=== PATIENT | male | born 1975 | race Caucasian/White ===

== ENCOUNTER 2020-09-03 15:44 | Emergency (ER) | payer OTHER, SELFPAY ==
--- NOTE | ~2020-09-03 | XR_ITS ---
XR foot LT min 3V 09/03/2020 16:05 INDICATION: Left foot pain PROCEDURE: 4 Views left foot COMPARISON: No prior studies FINDINGS: Fracture, dislocation or subluxation is not identified. Lisfranc joint intact. The soft tis sues appear within normal limits. No foreign bodies are identified. IMPRESSION: 1: NO ACUTE BONE OR JOINT ABNORMALITY IDENTIFIED. Reviewed, dictated and finalized at location A.
--- NOTE | 2020-09-03 15:52 | ED.LOWEXIN ---
HPI - Extremity Injury (Lower) General Chief Complaint: Extremity Injury, Lower Stated Complaint: Possible broken right Foot Time Seen by Provider: 09/03/20 15:52 Source: patient and RN notes reviewed History of Present Illness HPI Narrative: Patient is a 45-year-old male who presents the urgent care with complaints of left foot injury. Patient states that on Tuesday he was walking up his driveway and rolled the right foot. Patient states that he is iced the foot, elevated it and taken ibuprofen and Mcgrath for the pain. Patient states that he heard a pop and knows it has fractured . Patient also reports of some mild swelling to the outside of the left foot. No other acute complaints. No acute distress noted. Patient aware of the plan of care. Some parts of this dictation were generated by voice recognition software and may contain typographical and/or grammatical inaccuracies. Related Data Home Medications Medication Instructions Recorded Confirmed ivermectin [Soolantra] applic TOPICAL 09/03/20 ketoconazole TOPICAL 09/03/20 Allergies Allergy/AdvReac Type Severity Reaction Status Date / Time erythromycin base Allergy Unknown Rash Unverified 09/03/20 15:56 Penicillins Allergy Unknown Rash Unverified 09/03/20 15:56 Review of Systems Review of Systems: Narrative: CONSTITUTIONAL: Denies fever, chills, or sweats. EYES: Denies visual changes, redness, or discharge. ENT: Denies rhinorrhea, congestion, sore throat, or otalgia. CARDIOVASCULAR: Denies chest pain, palpitations, or edema. RESPIRATORY: Denies cough or dyspnea. GASTROINTESTINAL: Denies abdominal pain, nausea, vomiting, or diarrhea. GENITOURINARY: Denies dysuria or hematuria. SKIN: Denies rash or itching. MUSCULOSKELETAL: Reports of right foot pain and swelling NEUROLOGIC: Denies headache, numbness, or weakness. All other systems reviewed are negative, except as documented in HPI. PMFSH Comments At the time of my signature, I reviewed and agree with the nursing past medical, surgical, social, and family history. There is no relevant family history pertinent to the patient complaint. Exam Narrative: Exam Narrative: GENERAL: This is a well-nourished, well-developed patient, in no apparent distress. HEAD: normocephalic, atraumatic. EYES: PERRL. Sclera clear/white. Vision is grossly intact. EARS: External ears normal NOSE: External nose normal with no obvious nasal discharge, nares without redness, no rhinorrhea. THROAT: Mucous membranes moist NECK: Neck supple CARDIOVASCULAR: Regular rate and rhythm without murmurs, gallops, or rubs. RESPIRATORY: Clear to auscultation. Breath sounds equal bilaterally. No wheezes, rales, or rhonchi. SKIN: warm, intact with no suspicious lesions or rash, good texture and turgor. NEURO: awake, alert, and oriented to person, place and time. There were no obvious focal neurologic abnormalities. EXTREMITIES: Mild tenderness to the lateral aspect of the left dorsal foot without any obvious deformity or fracture. No ecchymosis noted. Slight swelling noted to the dorsal lateral aspect of the foot. Positive strong left pedal pulse with capillary refill less than 2 seconds. Range of motion within normal limits. Pain exacerbated with weightbearing. Course Vital Signs Vital signs: Vital Signs Temperature 98.8 F 09/03/20 15:54 Pulse Rate 96 09/03/20 15:54 Respiratory Rate 18 09/03/20 15:54 Blood Pressure 138/91 H 09/03/20 15:54 Pulse Oximetry 98 09/03/20 15:54 Temperature 98.8 F 09/03/20 15:58 Pulse Rate 96 09/03/20 15:58 Respiratory Rate 18 09/03/20 15:58 Blood Pressure 138/91 H 09/03/20 15:58 Pulse Oximetry 98 09/03/20 15:58 Reviewed-patient is informed that they may have pre-hypertension or hypertension based on a blood pressure reading in the department. I recommend the patient call the primary care provider listed on their discharge instructions or a physician of their choice this week to arrange
[2020-09-03 15:54] VITALS: BP 138/91; PULSE 96; RESP 18; TEMP 37.1; O2SAT 98
[2020-09-03 15:58] VITALS: BP 138/91; PULSE 96; RESP 18; TEMP 37.1; O2SAT 98
--- NOTE | 2020-09-03 16:05 | PC.NURSE ---
PT DECLINED ICE FOR COMFORT AND WHEELCHAIR TO RADIOLOGY
== END 2020-09-03 16:21 | disposition home or self-care (01) ==
PROVIDERS: Emergency Provider Nurse Practitioner Family; PCP Internal Medicine
DX: M79.672 Pain in left foot (principal); R03.0 Elevated blood-pressure reading, without diagnosis of hypertension
CPT/HCPCS: 73630; 99203; G0463